=== PATIENT | female | born 1965 | race Caucasian/White ===

== ENCOUNTER → 2019-11-03 | Outpatient (CLI) | payer OTHER ==
[~2019-11-03] MED LIST: ANTACID PLUS A355 M1 PO; DOCU100 PO; Gummi Bear Mul1 EACH PO; IBUP800 PO; PROM25 PO; Percocet 5-3251 EACH PO; SIME80CH PO; TRAZ50
== END | disposition home or self-care (01) ==
LOC: LAB SHORT 17:00 → OLS 17:00
DX: K50.90 Crohn's disease, unspecified, without complications (principal)
CPT/HCPCS: 83993

== ENCOUNTER 2019-11-18 10:13 | Inpatient (IN) | payer OTHER ==
[~2019-11-18] VITALS: Ht 167.6 cm; Wt 83.2 kg
[~2019-11-18 10:13] MED LIST changes: -DOCU100 PO; -Gummi Bear Mul1 EACH PO; -IBUP800 PO; -PROM25 PO; -Percocet 5-3251 EACH PO; -SIME80CH PO
[2019-11-18] MEDS ORDERED: Gummi Bear Mul1 EACH PO (10:46)
--- NOTE | 2019-11-18 12:17 | NUR ---
11/18/19 1217 Helen Chapin FOR[facility] BY [facility].[place].
--- NOTE | 2019-11-18 17:05 | NUR ---
11/18/19 170 Yoli Pollock REPORT CALLED BY MAXI PICHARDO TO TYRESE ROBIN RN ON SURGICAL FLOOR.
--- NOTE | 2019-11-18 17:55 | NUR ---
PT ARRIVED TO SURG ROOM 209 AT 1725. NO ORDERS WERE IN PLACE PRIOR TO PT ARRIVAL. MULTIPLE ATTEMPTS TO CONTACT MD MADE. PT IS CRYING AND FEELING NAUSEATED. ABDOMINAL DRESSINGS C/D/I, GRADY CATH IN PLACE AND DRAINING. HRR, LUNG SOUNDS DIM BASES. FAMILY IS AT PT'S BEDSIDE.
--- NOTE | 2019-11-18 19:01 | NUR ---
WAS CALLED TO PT'S ROOM, PT WAS EXTREMELY TEARFUL AND APPEARED VERY ANXIOUS. PER PT'S FAMILY SHE WAS CALLING OUT FOR HER MOM. PT IS ORIENTED AND FOLLOWS COMMANDS. ENCOURAGED PT TO TAKE SLOW DEEP BREATHS AND TO KNOW THAT SHE HAS HER DAUGHTER WITH HER. PT RECENTLY HAD A DOSE OF IV FENTYNAL AND IV ZOFRAN
[2019-11-19 04:40] LABS: BASOPHILS ABSOLUTE AUTO 0.02 K/mm3 (0.00-0.23); BASOPHILS PERCENT AUTO 0 % (0-2); EOSINOPHILS PERCENT AUTO 0 % (0-6); Hematocrit 33.2 % (33.0-51.0); IMMATURE GRAN ABSOLUTE AUTO 0.05 K/mm3 (0.00-0.10); IMMATURE GRAN PERCENT AUTO 1 % (0-1); LYMPHOCYTES ABSOLUTE AUTO 1.32 K/mm3 (0.84-5.20); LYMPHOCYTES PERCENT AUTO 13 % (21-46); MONOCYTES ABSOLUTE AUTO 0.75 K/mm3 (0.16-1.47); MONOCYTES PERCENT AUTO 7 % (4-13); Mean Corpuscular HGB 30.1 pg (26.0-34.0); Mean Corpuscular HGB Conc 33.1 g/dL (31.5-36.5); Mean Corpuscular Volume 91 fL (80-100); Mean Platelet Volume 10.7 fL (9.1-12.4); NEUTROPHILS ABSOLUTE AUTO 8.07 K/mm3 (1.96-9.15); NEUTROPHILS PERCENT AUTO 79 % (41-73); Platelet Count 176 K/mm3 (150-400); RDW Coefficient Variation 13.3 % (11.7-14.2); RDW Standard Deviation 44.7 fL (35.1-46.3); Red Blood Cell Count 3.66 M/mm3 (3.80-5.20); White Blood Cell Count 10.21 K/mm3 (4.00-11.30)
--- NOTE | 2019-11-19 05:42 | NUR ---
SHIFT SUMMARY PT SET UP ON DILAUDID KNIFE SHARPENER PUMP, HOWEVER DID NOT LIKE THE WAY SHE FELT AFTER RECIEVING DILAUDID. PT HAS NOT USED PUMP THE ENTIRE SHIFT. PT REPORTS MILD PAIN TO LOW ABD, RELIEVED BY HEAT PAD APPLICATION AND 1X IV TORADOL. PT HAS NAUSEA 2X TONIGHT, RESOLVED BY PO 12.5 MG PHENERGAN. PT SLEPT WELL THROUGH THE NIGHT, AWAKENING A COUPLE TIMES. POST OP VSS. GRADY IN PLACE DRAINING CLEAR YELLOW URINE. LR RUNNING @ 125 ML/HR. IV ANCEF ADMINISTERED PER EMAR ORDERS. AQUACEL DRESSING TO LOW ABD C/D/I, GAUZE TO LAP SITE C/D/I. FAMILY HAS BEEN AT BEDSIDE OFF AND ON TONIGHT. WILL CONT TO MONITOR AND PROVIDE CARE UNTIL PRESUMED BY ONCOMING RN.
--- NOTE | 2019-11-19 18:18 | NUR ---
SUMMARY ONE PERSON ASSIST OOB, HAS AMBULATED IN ROOM AND HALLWAYS. PATIENT REPORTS GOOD PAIN CONTROL. HAVING SHARP "GAS" PAINS. VOIDING CLEAR YELLOW URINE. NO VAGINAL DRAINAGE AT THIS TIME
--- NOTE | 2019-11-20 05:35 | NUR ---
SHIFT SUMMARY: MALKA IS TOLERATING PO INTAKE WELL, PASSING GAS AND URINATING WITHOUT DIFFICULTY. SHE REPORTS HER PAIN IS TOLERABLE WITH THE USE OF OXY AND TORADOL. HER DRESSINGS ARE CLEAN, DRY, AND INTACT. SHE REPORTS THAT SHE IS NOT HAVING ANY VAGINAL DISCHARGE. SHE IS AMBULATING TO THE BATHROOM AND IN THE HALLWAYS WITH MINIMAL ASSISTANCE. HER DAUGHTER STAYED THE NIGHT IN THE ROOM WITH HER. SHE IS ABLE TO MAKE HER NEEDS KNOWN. SHE IS LYING IN BED WITH HER CALL LIGHT IN REACH.
[2019-11-20] MEDS ORDERED: DOCU100 PO (12:40)
[2019-11-20] MEDS ORDERED: Percocet 5-3251 EACH PO (12:40)
[2019-11-20] MEDS ORDERED: SIME80CH PO (12:41)
[2019-11-20] MEDS ORDERED: PROM25 PO (12:41)
[2019-11-20] MEDS ORDERED: IBUP800 PO (12:42)
--- NOTE | 2019-11-20 13:10 | NUR ---
DISCHARGE PT DISCHARGED HOME FROM UNIT AT APROX 1307. PT GIVEN WRITTEN AND VERBAL DISCHARGE INSTRUCTIONS AND VERBALIZED UNDERSTANDING OF THESE INSTRUCTIONS. [facility] [place]. WHEELCHAIR TO CAR.
== END 2019-11-20 13:09 | disposition home or self-care (01) | DRG 742 ==
LOC: ORSCSDS 10:13 → SURS 17:25 → ORSCSDS 18:43 → SURS 18:43
PROVIDERS: ADMIT Obstetrics & Gynecology
PROC: 0DNW4ZZ Release Peritoneum, Percutaneous Endoscopic Approach (ICD-10-PCS; 2019-11-18)
PROC: 0UT20ZZ Resection of Bilateral Ovaries, Open Approach (ICD-10-PCS; principal; 2019-11-18 11:30)
DX: N83.201 Unspecified ovarian cyst, right side (principal); K50.90 Crohn's disease, unspecified, without complications; M19.90 Unspecified osteoarthritis, unspecified site; K66.0 Peritoneal adhesions (postprocedural) (postinfection); Z87.891 Personal history of nicotine dependence
CPT/HCPCS: 36415; 85025; 88305; J0171; J0690; J1100; J1170; J1650; J1885; J2250; J2405; J2704; J2710; J3010; J7120

== ENCOUNTER 2021-03-14 11:18 | Day surgery (SDC) | payer OTHER ==
[~2021-03-14] VITALS: Ht 167.6 cm; Wt 82.8 kg
[~2021-03-14 11:18] MED LIST changes: +ATOR10 PO; +DOCU100 PO; +Gummi Bear Mul1 EACH PO; +IBUP800 PO; +METR500 PO; +ONDA4ODT MM; +PROAIR RESPICL90 MCG; +PROM25 PO; +Percocet 5-3251 EACH PO; +SIME80CH PO; +TRAZ50 PO
[2021-03-14] MEDS ORDERED: MAGCHL64ER (11:50)
[2021-03-14] MEDS ORDERED: MULVITA (11:50)
== END 2021-03-14 13:25 | disposition home or self-care (01) ==
LOC: ORSCSDS 11:18
PROVIDERS: Internal Medicine Gastroenterology
PROC: 0DBE8ZX Excision of Large Intestine, Via Natural or Artificial Opening Endoscopic, Diagnostic (ICD-10-PCS; principal; 2021-03-14 12:45)
PROC: 0DBP8ZX Excision of Rectum, Via Natural or Artificial Opening Endoscopic, Diagnostic (ICD-10-PCS; principal; 2021-03-14 12:45)
DX: K50.919 Crohn's disease, unspecified, with unspecified complications (principal); K63.3 Ulcer of intestine; K62.1 Rectal polyp; K57.30 Diverticulosis of large intestine without perforation or abscess without bleeding; K64.1 Second degree hemorrhoids; F17.210 Nicotine dependence, cigarettes, uncomplicated; Z79.899 Other long term (current) drug therapy
CPT/HCPCS: 88305; J2704; J7120

== ENCOUNTER 2022-04-06 20:19 | Emergency (ER) | payer OTHER ==
[~2022-04-06] VITALS: Ht 167.6 cm; Wt 81.7 kg
[~2022-04-06 20:19] MED LIST changes: +Acetaminophen650 M1 PO; +MAGCHL64ER; +MULVITA; +OXYC5 PO
[2022-04-06 20:46] LABS: BASOPHILS ABSOLUTE AUTO 0.04 K/mm3 (0.00-0.23); BASOPHILS PERCENT AUTO 0 % (0-2); EOSINOPHILS ABSOLUTE AUTO 0.19 K/mm3 (0.00-0.68); EOSINOPHILS PERCENT AUTO 2 % (0-6); Hematocrit 38.8 % (33.0-51.0); IMMATURE GRAN ABSOLUTE AUTO 0.03 K/mm3 (0.00-0.10); IMMATURE GRAN PERCENT AUTO 0 % (0-1); LYMPHOCYTES PERCENT AUTO 29 % (21-46); MONOCYTES ABSOLUTE AUTO 0.62 K/mm3 (0.16-1.47); MONOCYTES PERCENT AUTO 7 % (4-13); Mean Corpuscular HGB 30.4 pg (26.0-34.0); Mean Corpuscular HGB Conc 33.5 g/dL (31.5-36.5); Mean Corpuscular Volume 91 fL (80-100); Mean Platelet Volume 10.9 fL (9.1-12.4); NEUTROPHILS ABSOLUTE AUTO 5.55 K/mm3 (1.96-9.15); NEUTROPHILS PERCENT AUTO 62 % (41-73); Platelet Count 216 K/mm3 (150-400); RDW Standard Deviation 46.8 fL (35.1-46.3); Red Blood Cell Count 4.27 M/mm3 (3.80-5.20); White Blood Cell Count 9.03 K/mm3 (4.00-11.30)
[2022-04-06 21:04] LABS: Alanine Aminotransfer (ALT/SGP 30 U/L (12-78); Albumin, Blood 3.9 g/dL (3.4-5.0); Albumin/Globulin Ratio 0.9 (0.8-1.8); Alk Phos 93 U/L (50-136); Anion Gap 8 mmol/L (6-16); Aspartate Aminotrans (AST/SGOT 18 U/L (12-37); Bilirubin, Total 0.2 mg/dL (0.1-1.0); Blood Urea Nitrogen 11 mg/dL (8-24); Bun/Creatinine Ratio 17.3 (12.0-20.0); CO2, Blood 24 mmol/L (21-32); Calcium, Blood 9.2 mg/dL (8.5-10.1); Chloride, Blood 109 mmol/L (98-108); Creatinine, Blood 0.64 mg/dL (0.40-1.00); Globulin, Blood 4.3 g/dL (2.2-4.0); Glomerular Filtration Rate >60 (60-); Glucose, Blood 120 mg/dL (70-99); Potassium, Blood 3.8 mmol/L (3.5-5.5); Sodium, Blood 141 mmol/L (136-145); Total Protein, Blood 8.2 g/dL (6.4-8.2)
== END 2022-04-06 23:05 | disposition home or self-care (01) ==
LOC: ER 20:19
PROVIDERS: Physician Assistant
DX: M54.50 Low back pain, unspecified (principal); G89.29 Other chronic pain; Z88.8 Allergy status to other drugs, medicaments and biological substances; F17.200 Nicotine dependence, unspecified, uncomplicated
CPT/HCPCS: 36415; 71045; 80053; 83690; 84484; 85025; 93005; 93010; 96374; 99284-25; J1885